=== PATIENT | male | born 1970 | race Caucasian/White ===

== ENCOUNTER 2016-05-23 19:35 | Inpatient (IN) | payer SELFPAY ==
[~2016-05-23] VITALS: Ht 180.3 cm; Wt 201.0 kg
[~2016-05-23 19:35] MED LIST: ASPIR 8181 M1 PO; HUMULIN N100 UNITS/ SC; HYDROCHLOROTHIA25 MG PO; JENTADUETO 2.51 EACH PO; LISINOPRIL-HCT1 EAC3 PO; NOHOMEMEDS; PREVACID15 MG PO
[2016-05-23 19:57] LABS: POINT-OF-CARE METER ID UU13113778
[2016-05-23 20:06] LABS: EOSINOPHIL (%) 0 % (0-5); HEMATOCRIT 47.7 % (38.0-50.0); IMMATURE GRANULOCYTE (%) 0.5 % (0.0-0.7); IMMATURE GRANULOCYTE COUNT 0.8 K/uL; LYMPHOCYTE COUNT 1.9 K/uL (1.0-2.8); MCH 28.9 PG (29.0-34.0); MCHC 34.4 G/DL (30.0-36.0); MCV 84.1 FL (86-99); MONOCYTE COUNT 0.6 K/uL (0-0.8); NEUTROPHIL (%) 82.9 % (45-76); NEUTROPHIL COUNT 12.8 K/uL (1.8-6.4); PLATELET COUNT 231 K/uL (156-360); RBC DIS.WIDTH-CV 13.1 % (11.8-14.6); RBC DIS.WIDTH-SD 40.3 % (39-53); RED BLOOD COUNT 5.67 M/uL (4.00-5.50); WHITE BLOOD COUNT 15.5 K/uL (4.1-10.2)
[2016-05-23 20:14] LABS: CHLORIDE 95 mEq/L (99-109); POTASSIUM 4.1 mEq/L (3.7-5.4); SODIUM 128 mEq/L (136-147)
[2016-05-23 20:20] LABS: GFR ESTIMATE (CALCULATED) 46 mL/min/; GLUCOSE 416 mg/dL (70-99)
[2016-05-23 20:21] LABS: UREA NITROGEN (BUN) 16 mg/dL (9-23)
[2016-05-23 20:29] LABS: ADD MIUA? YES; BILIRUBIN SMALL; BLOOD MODERATE; COLOR DK YELLOW ((YELLOW)); GLUCOSE (STRIP) >=1000; KETONES 40; LEUKOCYTES NEGATIVE; NITRITE NEGATIVE; PH, URINE 5.5 (5-8); PROTEIN (STRIP) >=300; SPECIFIC GRAVITY 1.045 (1.000-1.030)
[2016-05-23 20:59] LABS: RED BLOOD CELLS 0-5 /HPF (0-5)
[2016-05-23 21:00] LABS: BACTERIA 1+; CASTS PRESENT /LPF; CRYSTALS NONE SEEN; EPITHELIAL CELLS RARE; MUCUS 1+; UCUL ADDED? NO; WHITE BLOOD CELLS 0-5 /HPF (0-5)
[2016-05-23 21:18] LABS: TROP-I INTERPRETATION NEGATIVE; TROPONIN-I < 0.01 ng/mL (0.0-0.30)
[2016-05-23 21:22] LABS: CARBON DIOXIDE (BICARBONATE) 24.5 MEQ/L (20-31)
[2016-05-23 21:45] LABS: ANION GAP 14 MEQ/L (2-14)
[2016-05-23 21:46] LABS: ALKALINE PHOSPHATASE 92 IU/L (3-129)
[2016-05-23] MEDS ORDERED: OMEPRAZOLE20 M2 PO (21:46)
[2016-05-23] MEDS ORDERED: ZESTORETIC 20-1 EAC1 PO (21:47)
[2016-05-23] MEDS ORDERED: JENTADUETO 2.51 EAC2 PO (21:47)
[2016-05-23 21:49] LABS: DIRECT BILIRUBIN 0.5 mg/dL (0.0-0.3)
[2016-05-23 23:21] LABS: POINT-OF-CARE METER ID UU13113702
[2016-05-24 02:06] VITALS: BP 139/84
[2016-05-24 04:04] VITALS: BP 129/39
[2016-05-24 06:48] LABS: EOSINOPHIL (%) 0 % (0-5); IMMATURE GRANULOCYTE (%) 0.2 % (0.0-0.7); LYMPHOCYTE COUNT 2.5 K/uL (1.0-2.8); MCH 30.3 PG (29.0-34.0); MCHC 35.2 G/DL (30.0-36.0); MCV 85.9 FL (86-99); MONOCYTE (%) 3.8 % (3-12); MONOCYTE COUNT 0.5 K/uL (0-0.8); NEUTROPHIL (%) 76.7 % (45-76); NEUTROPHIL COUNT 10.1 K/uL (1.8-6.4); PLATELET COUNT 193 K/uL (156-360); RBC DIS.WIDTH-CV 13.2 % (11.8-14.6); RBC DIS.WIDTH-SD 41.5 % (39-53); RED BLOOD COUNT 4.89 M/uL (4.00-5.50); WHITE BLOOD COUNT 13.2 K/uL (4.1-10.2)
[2016-05-24 07:09] LABS: ANION GAP 11 MEQ/L (2-14); CHLORIDE 98 MEQ/L (99-109); GFR ESTIMATE (CALCULATED) > 59 mL/min/; GLUCOSE 300 mg/dL (70-99); POTASSIUM 4.2 MEQ/L (3.7-5.4); SAMPLE HEMOLYSIS CHECK 1; SAMPLE ICTERIC CHECK 0; SAMPLE LIPEMIA CHECK 0; SODIUM 132 MEQ/L (136-147); UREA NITROGEN (BUN) 15 mg/dL (9-23)
[2016-05-24 07:47] VITALS: BP 128/65
[2016-05-24 10:18] LABS: Estimated Average Glucose 332 mg/dL (70-123); HEMOGLOBIN A1c (GLYCOHEMOGLOB) 13.2 % HGB (Below 5.7)
[2016-05-24 11:38] VITALS: BP 135/65
[2016-05-24 16:21] LABS: POINT-OF-CARE METER ID UU14174225
[2016-05-24 20:00] VITALS: BP 142/67
[2016-05-25] VITALS: BP 113/65
[2016-05-25 04:03] VITALS: BP 110/65
[2016-05-25 07:58] LABS: POINT-OF-CARE METER ID UU14174225
[2016-05-25 08:17] VITALS: BP 114/67
[2016-05-25 11:13] LABS: POINT-OF-CARE METER ID UU14174225
[2016-05-25 11:59] VITALS: BP 123/61
[2016-05-25 15:52] VITALS: BP 95/55
[2016-05-25 20:58] LABS: POINT-OF-CARE METER ID UU14174225; POINT-OF-CARE USER ID 603211116
[2016-05-26 00:19] VITALS: BP 95/56
[2016-05-26 07:44] VITALS: BP 119/65
[2016-05-26 08:53] LABS: HEMATOCRIT 39.2 % (38.0-50.0); MCH 29.7 PG (29.0-34.0); MCHC 33.9 G/DL (30.0-36.0); MCV 87.5 FL (86-99); MEAN PLAT.VOLUME 11.5 uM^3 (9.0-12.4); PLATELET COUNT 239 K/uL (156-360); RBC DIS.WIDTH-CV 13.7 % (11.8-14.6); RBC DIS.WIDTH-SD 43.7 % (39-53); RED BLOOD COUNT 4.48 M/uL (4.00-5.50)
[2016-05-26 09:20] LABS: ANION GAP 11 MEQ/L (2-14); CHLORIDE 100 MEQ/L (99-109); GFR ESTIMATE (CALCULATED) 41 mL/min/; GLUCOSE 216 mg/dL (70-99); POTASSIUM 3.7 MEQ/L (3.7-5.4); SAMPLE HEMOLYSIS CHECK 0; SAMPLE ICTERIC CHECK 0; SAMPLE LIPEMIA CHECK 0; SODIUM 133 MEQ/L (136-147)
[2016-05-26 09:22] LABS: UREA NITROGEN (BUN) 29 mg/dL (9-23)
[2016-05-26] MEDS ORDERED: LIPITOR20 MG PO (11:22)
[2016-05-26 11:43] LABS: POINT-OF-CARE METER ID UU14174225
[2016-05-26 15:27] VITALS: BP 107/50
[2016-05-26 16:41] LABS: POINT-OF-CARE METER ID UU14174225
[2016-05-26 20:19] VITALS: BP 134/63
[2016-05-27] VITALS: BP 100/70; BP 158/84
[2016-05-27 03:39] VITALS: BP 103/58
[2016-05-27 07:45] VITALS: BP 100/56
[2016-05-27 09:06] LABS: HEMATOCRIT 37.2 % (38.0-50.0); MCH 30.1 PG (29.0-34.0); MCHC 34.7 G/DL (30.0-36.0); MCV 86.7 FL (86-99); MEAN PLAT.VOLUME 11.1 uM^3 (9.0-12.4); PLATELET COUNT 239 K/uL (156-360); RBC DIS.WIDTH-CV 13.8 % (11.8-14.6); RBC DIS.WIDTH-SD 43.5 % (39-53); RED BLOOD COUNT 4.29 M/uL (4.00-5.50)
[2016-05-27 09:28] LABS: ALKALINE PHOSPHATASE 116 IU/L (3-129); ANION GAP 12 MEQ/L (2-14); CHLORIDE 100 MEQ/L (99-109); GFR ESTIMATE (CALCULATED) 53 mL/min/; GLUCOSE 212 mg/dL (70-99); POTASSIUM 3.7 MEQ/L (3.7-5.4); SAMPLE HEMOLYSIS CHECK 1; SAMPLE ICTERIC CHECK 0; SAMPLE LIPEMIA CHECK 0; SODIUM 133 MEQ/L (136-147); TOTAL BILIRUBIN 0.7 MG/DL (0.0-1.0); UREA NITROGEN (BUN) 24 mg/dL (9-23)
[2016-05-27 15:46] VITALS: BP 103/56
[2016-05-27 23:50] VITALS: BP 123/65
[2016-05-28 07:39] VITALS: BP 113/62
[2016-05-28 09:55] LABS: HEMATOCRIT 37.1 % (38.0-50.0); MCH 29.1 PG (29.0-34.0); MCHC 33.7 G/DL (30.0-36.0); MCV 86.5 FL (86-99); MEAN PLAT.VOLUME 11.2 uM^3 (9.0-12.4); PLATELET COUNT 293 K/uL (156-360); RBC DIS.WIDTH-CV 13.8 % (11.8-14.6); RBC DIS.WIDTH-SD 43.2 % (39-53); RED BLOOD COUNT 4.29 M/uL (4.00-5.50); WHITE BLOOD COUNT 10.4 K/uL (4.1-10.2)
[2016-05-28 10:15] LABS: ANION GAP 14 MEQ/L (2-14); CHLORIDE 99 MEQ/L (99-109); GFR ESTIMATE (CALCULATED) 58 mL/min/; GLUCOSE 237 mg/dL (70-99); POTASSIUM 3.4 MEQ/L (3.7-5.4); SAMPLE HEMOLYSIS CHECK 0; SAMPLE ICTERIC CHECK 0; SAMPLE LIPEMIA CHECK 0; SODIUM 133 MEQ/L (136-147); UREA NITROGEN (BUN) 16 mg/dL (9-23)
[2016-05-28 16:00] VITALS: BP 140/72
[2016-05-28 23:47] VITALS: BP 129/63
[2016-05-29 05:20] LABS: HEMATOCRIT 37.4 % (38.0-50.0); MCH 28.8 PG (29.0-34.0); MCHC 33.2 G/DL (30.0-36.0); MEAN PLAT.VOLUME 11.3 uM^3 (9.0-12.4); PLATELET COUNT 337 K/uL (156-360); RBC DIS.WIDTH-CV 13.8 % (11.8-14.6); RBC DIS.WIDTH-SD 43.7 % (39-53); WHITE BLOOD COUNT 10.4 K/uL (4.1-10.2)
[2016-05-29 05:45] LABS: ANION GAP 12 MEQ/L (2-14); CHLORIDE 99 MEQ/L (99-109); GFR ESTIMATE (CALCULATED) 53 mL/min/; GLUCOSE 176 mg/dL (70-99); POTASSIUM 3.4 MEQ/L (3.7-5.4); SAMPLE HEMOLYSIS CHECK 0; SAMPLE ICTERIC CHECK 0; SAMPLE LIPEMIA CHECK 0; SODIUM 135 MEQ/L (136-147); UREA NITROGEN (BUN) 13 mg/dL (9-23)
[2016-05-29 07:31] VITALS: BP 136/79
[2016-05-29 15:17] VITALS: BP 134/73
[2016-05-29 21:34] LABS: POINT-OF-CARE METER ID UU14174225
[2016-05-30] VITALS (8 sets, daily range): BP systolic 117–138; BP diastolic 60–93
[2016-05-30 07:18] LABS: EOSINOPHIL COUNT 0.1 K/uL (0-0.3); HEMATOCRIT 35.7 % (38.0-50.0); IMMATURE GRANULOCYTE (%) 0.7 % (0.0-0.7); IMMATURE GRANULOCYTE COUNT 0.1 K/uL; LYMPHOCYTE COUNT 1.7 K/uL (1.0-2.8); MCH 28.3 PG (29.0-34.0); MCHC 32.2 G/DL (30.0-36.0); MCV 87.7 FL (86-99); MEAN PLAT.VOLUME 11.2 uM^3 (9.0-12.4); MONOCYTE COUNT 0.8 K/uL (0-0.8); NEUTROPHIL (%) 73.3 % (45-76); NEUTROPHIL COUNT 7.4 K/uL (1.8-6.4); PLATELET COUNT 373 K/uL (156-360); RBC DIS.WIDTH-CV 13.9 % (11.8-14.6); RBC DIS.WIDTH-SD 44.5 % (39-53); RED BLOOD COUNT 4.07 M/uL (4.00-5.50); WHITE BLOOD COUNT 10.1 K/uL (4.1-10.2)
[2016-05-30 07:40] LABS: ANION GAP 13 MEQ/L (2-14); CHLORIDE 97 MEQ/L (99-109); GFR ESTIMATE (CALCULATED) 58 mL/min/; GLUCOSE 191 mg/dL (70-99); POTASSIUM 3.9 MEQ/L (3.7-5.4); SAMPLE HEMOLYSIS CHECK 0; SAMPLE ICTERIC CHECK 0; SAMPLE LIPEMIA CHECK 0; SODIUM 136 MEQ/L (136-147); UREA NITROGEN (BUN) 12 mg/dL (9-23)
[2016-05-31 04:16] VITALS: BP 120/71
[2016-05-31 08:00] VITALS: BP 129/72
[2016-05-31 08:11] LABS: POINT-OF-CARE METER ID UU14174225
[2016-05-31 11:23] LABS: EOSINOPHIL COUNT 0.1 K/uL (0-0.3); HEMATOCRIT 33.3 % (38.0-50.0); IMMATURE GRANULOCYTE (%) 0.6 % (0.0-0.7); IMMATURE GRANULOCYTE COUNT 0.1 K/uL; LYMPHOCYTE COUNT 1.7 K/uL (1.0-2.8); MCH 28.9 PG (29.0-34.0); MCHC 32.7 G/DL (30.0-36.0); MCV 88.3 FL (86-99); MONOCYTE (%) 6.4 % (3-12); MONOCYTE COUNT 0.7 K/uL (0-0.8); NEUTROPHIL (%) 75.7 % (45-76); NEUTROPHIL COUNT 7.9 K/uL (1.8-6.4); PLATELET COUNT 350 K/uL (156-360); RBC DIS.WIDTH-SD 44.9 % (39-53); RED BLOOD COUNT 3.77 M/uL (4.00-5.50); WHITE BLOOD COUNT 10.5 K/uL (4.1-10.2)
[2016-05-31 11:35] LABS: ANION GAP 12 MEQ/L (2-14); CHLORIDE 98 MEQ/L (99-109); POTASSIUM 3.6 MEQ/L (3.7-5.4); SAMPLE HEMOLYSIS CHECK 0; SAMPLE ICTERIC CHECK 0; SAMPLE LIPEMIA CHECK 0; SODIUM 134 MEQ/L (136-147)
[2016-05-31 11:40] LABS: GFR ESTIMATE (CALCULATED) 53 mL/min/; GLUCOSE 212 mg/dL (70-99); UREA NITROGEN (BUN) 11 mg/dL (9-23)
[2016-05-31 12:00] VITALS: BP 138/69
[2016-05-31 16:00] VITALS: BP 129/62
[2016-05-31 20:29] VITALS: BP 132/67
[2016-05-31 21:31] LABS: POINT-OF-CARE USER ID 603211116
[2016-06-01 01:05] VITALS: BP 144/76
[2016-06-01 04:39] VITALS: BP 136/77
[2016-06-01 08:00] VITALS: BP 143/71
[2016-06-01 11:55] VITALS: BP 153/71
[2016-06-01] MEDS ORDERED: OXYCODONE HCL5 MG PO (13:35)
[2016-06-01] MEDS ORDERED: NAPROXEN250 MG PO (13:35)
[2016-06-01] MEDS ORDERED: ASPIR 8181 M1 PO (15:16)
[2016-06-01] MEDS ORDERED: BLOOD LANCETS1 EACH MC (15:16)
[2016-06-01] MEDS ORDERED: GLUCOMETER MC (15:16)
[2016-06-01] MEDS ORDERED: LIPITOR20 MG PO (15:16)
[2016-06-01] MEDS ORDERED: EASY COMFORT I1 EAC6 MC (15:16)
[2016-06-01] MEDS ORDERED: JENTADUETO 2.51 EAC2 PO (15:16)
[2016-06-01] MEDS ORDERED: HUMULIN N100 UNITS/ SC (15:16)
[2016-06-01] MEDS ORDERED: ZESTORETIC 20-1 EAC1 PO (15:16)
[2016-06-01] MEDS ORDERED: OMEPRAZOLE20 M2 PO (15:16)
== END 2016-06-01 15:28 | disposition home or self-care (01) | DRG 603 ==
LOC: EME 19:35 → 5SOUTH 22:36 → EDOF 22:36 → 5SOUTH 05-24 01:06
PROVIDERS: Emergency Medicine; Hospitalist; Internal Medicine; Nurse Practitioner Adult Health; Nurse Practitioner Family
DX: L03.116 Cellulitis of left lower limb (principal); N17.9 Acute kidney failure, unspecified; E87.1 Hypo-osmolality and hyponatremia; Z68.44 Body mass index [BMI] 60.0-69.9, adult; E11.65 Type 2 diabetes mellitus with hyperglycemia; E78.1 Pure hyperglyceridemia; I10 Essential (primary) hypertension; E66.01 Morbid (severe) obesity due to excess calories; K21.9 Gastro-esophageal reflux disease without esophagitis
CPT/HCPCS: 71010; 71020; 73590; 73630; 80048; 80053; 80076; 80202; 81003; 82803; 82948; 83036; 83605; 83880; 84484; 85025; 85027; 87040; 93005; 93971; 94799; 99281; 99285; J0690; J0696; J1644; J1815; J3370; J7030; J7050